=== PATIENT | male | born 1975 | race Caucasian/White ===

== ENCOUNTER 2024-08-07 12:14 | Emergency (ER) | payer OTHER ==
[~2024-08-07] VITALS: Ht 180.3 cm; Wt 77.1 kg
[2024-08-07 12:35] VITALS: PULSE 78; RESP 16; TEMP 98.1; O2SAT 100
== END 2024-08-07 13:05 | disposition home or self-care (01) ==
LOC: ER 13:01
DX: L97.129 Non-pressure chronic ulcer of left thigh with unspecified severity (principal); L97.119 Non-pressure chronic ulcer of right thigh with unspecified severity; F17.210 Nicotine dependence, cigarettes, uncomplicated
CPT/HCPCS: 99282